=== PATIENT | female | born 1985 | race Caucasian/White ===

== ENCOUNTER → 2021-11-25 11:36 | Outpatient (CLI) | payer OTHER, SELFPAY ==
--- NOTE | ~2021-11-25 | US_ITS ---
EXAMINATION: US transvaginal DATE: 11/25/2021 12:13 INDICATION: Pelvic pain. Left adnexal fullness. Comparison:No prior studies for comparison. TECHNIQUE: Multiple transabdominal and endovaginal sonographic images of the pelvis performed. FINDINGS: The uterus measures 8.5 x 3.8 x 4.8 cm. The endometrial complex measures 11 mm. The right ovary measures 2.3 x 1.5 x 3.4 cm and the left ovary measures 3.4 x 1.8 x 4 cm. There are small follicles in each ovary. Normal doppler signal in both ovaries. There is free fluid in the pelvis. There are no abnormal masses seen on either side. IMPRESSION: 1. Unremarkable pelvic ultrasound. Reviewed, dictated and finalized at location A.
== END ==
PROVIDERS: PCP Obstetrics & Gynecology Gynecology; Visit Provider Nurse Practitioner
DX: R10.2 Pelvic and perineal pain (principal)
CPT/HCPCS: 76830

== ENCOUNTER 2022-09-17 17:57 | Emergency (ER) | payer OTHER, SELFPAY ==
--- NOTE | ~2022-09-17 | XR_ITS ---
EXAM: XR foot LT min 3V DATE: 09/17/2022 18:44 HISTORY: pain, bruising to metarsals 3-5 . COMPARISON: None available. FINDINGS: Normal mineralization. No fracture or dislocation. No lytic or blastic lesion. Joint space s are maintained. No erosion or periosteal change. Soft tissues within normal limits. IMPRESSION: No acute osseous finding in the left foot. Reviewed, dictated and finalized at location K.
[2022-09-17 18:01] VITALS: BP 125/70; PULSE 108; RESP 14; TEMP 36.8; O2SAT 98
--- NOTE | 2022-09-17 18:31 | ED.LOWEXIN ---
HPI - Extremity Injury (Lower) General Chief Complaint: Extremity Injury, Lower Stated Complaint: foot injury Time Seen by Provider: 09/17/22 18:08 History of Present Illness HPI Narrative: 37-year-old female reports for evaluation of dorsal left foot pain and ecchymosis x3 days. Patient states 3 days ago, she dropped a metal chair on her foot and since then has been having pain and bruising. 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 She is able to ambulate but with a limp. She does report paresthesias to her third-fifth toes that is worse when she elevates her foot. Reports icing, elevating and taking ibuprofen with improvement. Related Data Allergies Allergy/AdvReac Type Severity Reaction Status Date / Time No Known Allergies Allergy Verified 09/17/22 17:57 Review of Systems Review of Systems: CONSTITUTIONAL: Denies fever, chills EYES: Denies visual changes, redness, or discharge. ENT: Denies rhinorrhea, congestion, sore throat, or otalgia. CARDIOVASCULAR: Denies chest pain, palpitations, or edema. RESPIRATORY: Denies cough or dyspnea. GASTROINTESTINAL: Denies abdominal pain, nausea, vomiting, or diarrhea. GENITOURINARY: Denies dysuria or hematuria. SKIN: Denies rash or itching. MUSCULOSKELETAL: See HPI NEUROLOGIC: Denies headache, numbness, dizziness, or weakness. PSYCHIATRIC: Denies anxiety or depression. Exam Narrative: GENERAL: Well-appearing, in no acute distress. HEAD: Normocephalic NECK: Supple. CHEST: No respiratory distress. Clear to auscultation, no adventitious breath sounds. HEART: Regular rate and rhythm. No murmur heard. Normal peripheral pulses. EXTREMITIES: Tenderness to the dorsal aspect of the left 3rd-5th metatarsals with overlying ecchymosis. No tenderness to remainder of foot, ankle or lower extremity. DP pulse 2+. Cap refill less than 2. Sensation intact in all toes. Full range of motion of toes and ankle. SKIN: Warm, dry, no rash. NEURO: No focal deficits. Alert and oriented x3. PSYCH: Normal mood and affect. Course Vital Signs Vital signs: Vital Signs Temperature 98.2 F 09/17/22 18:01 Pulse Rate 108 H 09/17/22 18:01 Respiratory Rate 14 09/17/22 18:01 Blood Pressure 125/70 09/17/22 18:01 Pulse Oximetry 98 09/17/22 18:01 Oxygen Delivery Room Air 09/17/22 18:01 Temperature 98.2 F 09/17/22 18:01 Pulse Rate 108 H 09/17/22 18:01 Respiratory Rate 14 09/17/22 18:01 Blood Pressure 125/70 09/17/22 18:01 Pulse Oximetry 98 09/17/22 18:01 Oxygen Delivery Room Air 09/17/22 18:01 MDM - Extremity Injury (Lower) MDM Narrative Medical decision making narrative: 37-year-old female reports for evaluation of pain to the dorsal aspect of her left foot with overlying ecchymosis x3 days after she dropped a metal chair on her foot. Vitals stable. Patient neurovascularly intact. X-rays without acute osseous abnormalities. Imaging discussed with patient. She is provided with an Mc wrap, Tylenol ibuprofen while in the ED with improvement. Encouraged Tylenol, ibuprofen, RICE and PCP follow-up. PCP referral provided. Strict ED return precautions discussed. Patient agrees to the plan verbalizes understanding. Discharged in stable condition. Medical Records Attestation: I reviewed the patient's medical records. Imaging Data Attestation: I personally reviewed and interpreted this imaging study as follows: Radiologist's impression: Impressions Foot X-Ray 09/17/22 18:50 IMPRESSION: No acute osseous finding in the left foot. Discharge Plan Discharge Clinical Impression: Contusion of foot, left Qualifiers: Encounter type: initial encounter Qualified Code(s): S90.32XA - Contusion of left foot, initial encounter Patient Disposition: Home, Self-Care Condition: Stable Instructions: Antibiotic Form, Foot Contusion (ED) Additional Instructions: You were
[2022-09-17] MEDS: ACETAMINOPHEN 500 MG TABLET 1000 MG PO (18:39)
[2022-09-17] MEDS: IBUPROFEN 600 MG TABLET PO (18:40)
== END 2022-09-17 19:36 | disposition home or self-care (01) ==
PROVIDERS: Emergency Provider Physician Assistant
DX: S90.32XA Contusion of left foot, initial encounter (principal); W20.8XXA Other cause of strike by thrown, projected or falling object, initial encounter
CPT/HCPCS: 73630; 99283; A9270